=== PATIENT | female | born 1990 | race Caucasian/White ===

== ENCOUNTER → 2023-01-03 12:19 | Outpatient (CLI) | payer OTHER, SELFPAY ==
[2023-01-03 13:47] LABS: Add Manual Diff / Slide Review NO; Basophils Absolute Auto 0 /uL (0-100); Basophils Percent Auto 0.3 % (0-2); Eosinophils Absolute Auto 200 /uL (0-450); Eosinophils Percent Auto 2.2 % (2-4); Hematocrit 39.7 % (36-46); Hemoglobin 13.5 g/dL (12.0-16.0); Lymphocytes Absolute Auto 2700 /uL (1100-4500); Lymphocytes Percent Auto 30.7 % (25-40); Mean Corpuscular HGB Conc 34.1 % (30-36); Mean Corpuscular Hemoglobin 29.5 PG (26-34); Mean Corpuscular Volume 86.6 fL (80-100); Monocytes Absolute Auto 400 /uL (0-900); Monocytes Percent Auto 4.8 % (3-14); Neutrophils Absolute Auto 5500 /uL (1500-7000); Platelet Count 340 X10^3/uL (150-400); Red Blood Cell Count 4.58 X10^6/uL (4.0-5.2); Red Cell Distribution Width 14.2 % (11.6-14.8); White Blood Cell Count 8.9 X10^3/uL (4.5-11.0)
[2023-01-03 13:59] LABS: Hemoglobin A1C% w Est Avg Glu 5.7 % (4.0-6.0)
[2023-01-03 14:03] LABS: Alanine Aminotransferase 19 IU/L (<35); Albumin 4.3 g/dL (3.5-5.0); Albumin Globulin Ratio 1.3 (1.0-2.8); Alkaline Phosphatase 63 U/L (38-126); Aspartate Aminotransferase 24 IU/L (14-36); BUN Creatinine Ratio 16.7 (6-22); Bilirubin Total 0.6 mg/dL (0.2-1.3); Blood Urea Nitrogen 12 mg/dL (7-17); Calcium 9.4 mg/dL (8.4-10.2); Carbon Dioxide 26 mmol/L (22-32); Chloride 104 mmol/L (98-107); Cholesterol 181 mg/dL (140-199); Estimated Glomerular Filt Rate > 60 mL/min (>60); Globulin 3.4 g/dL (1.7-4.1); Glucose 99 mg/dL (70-100); HDL Cholesterol 36 mg/dL (40-60); HEMOLYSIS < 15 (0-50); LDL Cholesterol Calculated 128 mg/dL (<100); Potassium 3.7 mmol/L (3.4-5.1); Sodium 139 mmol/L (137-145); Total Protein 7.7 g/dL (6.3-8.2); Triglycerides 87 mg/dL (35-150)
[2023-01-03 14:35] LABS: Thyroid Stimulating Hormone 0.256 uIU/mL (0.47-4.68)
[2023-01-03 17:25] LABS: HIV 1 & 2 Ab/Ag 4th Gen Combo NEGATIVE (NEGATIVE); Hep C Virus Ab w/Reflex Quant NEGATIVE s/c (NEGATIVE)
== END ==
PROVIDERS: PCP Family Medicine; Referring Provider Family Medicine; Visit Provider Family Medicine
DX: E28.2 Polycystic ovarian syndrome (principal); N92.1 Excessive and frequent menstruation with irregular cycle; M79.7 Fibromyalgia; F31.9 Bipolar disorder, unspecified
CPT/HCPCS: 36415; 80053; 80061; 83036; 84443; 85025; 86803; 87389

== ENCOUNTER → 2023-03-06 10:43 | Outpatient (CLI) | payer OTHER, MEDICAID, SELFPAY ==
[2023-03-06 11:42] LABS: Free T3, Triiodothyronine Free 3.72 pg/mL (2.77-5.27); Free T4, Direct Thyroxine 0.88 ng/dL (0.78-2.19)
[2023-03-06 11:55] LABS: Thyroid Stimulating Hormone 0.377 uIU/mL (0.47-4.68)
== END ==
PROVIDERS: PCP Family Medicine; Referring Provider Family Medicine; Visit Provider Family Medicine
DX: R79.89 Other specified abnormal findings of blood chemistry (principal)
CPT/HCPCS: 36415; 84439; 84443; 84481

== ENCOUNTER → 2023-03-28 11:07 | Outpatient (CLI) | payer OTHER, MEDICAID, SELFPAY ==
[2023-03-28 18:20] LABS: Vitamin D 25 Hydroxy (D3) 24.5 ng/mL (30.0-100.0)
== END ==
PROVIDERS: PCP Family Medicine; Referring Provider Family Medicine; Visit Provider Family Medicine
DX: R53.82 Chronic fatigue, unspecified (principal)
CPT/HCPCS: 36415; 82306

== ENCOUNTER 2024-03-11 08:03 | Emergency (ER) | payer OTHER, SELFPAY ==
[2024-03-11 08:07] VITALS: BP 140/80; PULSE 89; RESP 18; TEMP 36.5; O2SAT 98; BMI 36.0
[2024-03-11 08:08] VITALS: PULSE 96; O2SAT 98
[2024-03-11 08:09] VITALS: BP 140/81; PULSE 87; O2SAT 97
--- NOTE | 2024-03-11 08:19 | ED_ITS ---
HPI - General Adult General Chief complaint: Extremity Injury, Upper Stated complaint: per pt r shoulder dislocated Time Seen by Provider: 03/11/24 08:07 Source: patient Mode of arrival: Ambulatory History of Present Illness HPI narrative: 33-year-old woman with a history of right shoulder pain, bipolar disorder, fibromyalgia, scoliosis and has a history of multiple shoulder dislocations prior to the age of 19. Was folding laundry yesterday and developed worsening pain in the right shoulder. She had noticed some minor pain and swelling from general activities and physical labor in the few days prior to that. Now was complaining that she can not move her arm. She is worried that she has dislocated the arm. Related Data Home Medications Medication Instructions Recorded Confirmed clonidine HCl 0.1 mg tablet 0.1 mg PO BID 12/19/22 03/13/23 duloxetine 60 mg capsule,delayed 60 mg PO DAILY 12/19/22 03/13/23 release Previous Rx's Medication Instructions Recorded polyethylene glycol 3350 17 17 g PO DAILY #510 grams 03/13/23 gram/dose oral powder (GentleLax) Allergies Allergy/AdvReac Type Severity Reaction Status Date / Time No Known Drug Allergies Allergy Unverified 03/13/23 09:02 Review of Systems Review of Systems Narrative: Pertinent positive and negative findings as per HPI Patient History Medical History Osteoarthritis Anxiety Restless leg syndrome Migraines DDD (degenerative disc disease) Scoliosis Chronic back pain Ruptured tympanic membrane Recurrent sinusitis History of recurrent ear infection Fibroids Polycystic ovary syndrome Borderline personality disorder Bipolar disorder Menometrorrhagia Fibromyalgia syndrome Surgical History Anesthesia History of removal of cyst History of repair of rotator cuff History of section Family History Father History of heart disease Hypertension Mother Mental health problem Grandmother Cancer Grandfather Diabetes mellitus History of heart disease Hyperlipidemia Hypertension Grandmother Cancer History of heart disease Social History marital status: number of children: 2 household members: spouse and children lives independently: Yes caregiver/support person: No housing: house pets and animals: Yes (2 cats, 1 dog) education level: college 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) Smoking Status: Never smoker alcohol intake: current (rare) substance use type: marijuana (daily) Smoking Status: Never smoker Exam Initial Vital Signs Initial Vital Signs: Vital Signs Temperature 97.7 F 03/11/24 08:07 Pulse Rate 89 03/11/24 08:07 Respiratory Rate 18 03/11/24 08:07 Blood Pressure 140/80 03/11/24 08:07 Pulse Oximetry 98 03/11/24 08:07 Oxygen Delivery Method Room Air 03/11/24 08:07 General: Alert appropriate in no acute distress Respiratory: Able to speak in full sentences, no obvious respiratory distress Skin: No obvious rashes, warm and dry Neurologic: Grossly intact no obvious asymmetries or abnormalities Psych: appropriate insight and affect, cooperative Extremity: Right shoulder is examined. No gross deformity is appreciated. She is neurovascularly intact distally. There is some swelling over the deltoid and around the proximal humerus. There was no warmth or redness to suggest infection. She is full extension of the elbow and no pain at the wrist. Main tenderness is around the deltoid insertion posteriorly and she has tenderness with biceps contraction. There was enough tenderness and overall edema that complete soft tissue/ligamentous exam is difficult today Course Orders Ordered: ED Orders 03/11/24 08:29 XR shoulder RT min 2V Stat Discontinued Medications Acetaminophen (Acetaminophen 325 Mg Tablet) 325 mg PO NOW ONE Stop: 03/11/24 08:30 Last Admin: 03/11/24 08:43 Dose: 325 mg Documented By: SUDHIR Ibuprofen (Ibuprofen 400 Mg Tablet) 400 mg PO NOW ONE Stop: 03/11/24 08:30 Last Admin: 03/11/24 08:43 Dose: 400 mg Documented By: MPO Vital Signs Vital signs: Vital Signs - 8 hr 03/11/24 08:07 Temperature 97.7 F Pulse Rate 89 Respiratory Rate 18 Blood Pressure 140/80 Pulse Oximetry 98 Oxygen Delivery Method Room Air Medical Decision Making [facility] Narrative Medical decision making narrative: 33-year-old woman with a history of chronic right shoulder pain. Increasing pain over the last couple of days and then significant pain while folding laundry yesterday. X-ray does not show any evidence of dislocation or AC joint separation. On physical exam she is exquisitely tender over the bicipital insertion and deltoid insertion. There was no suggestion infection, septic joint, hemorrhage She is given ibuprofen and Tylenol. She is placed in a sling for comfort. She is neurovascularly intact pre and post placement and does feel slightly more comfortable with a mild immobilization. Ice pack is given At the suspect she does have moderate soft tissue injury and may benefit from physical therapy and eventually MRI of the shoulder. She will need follow up with her primary care physician all of this is reviewed with the patient, there was no indication for additional imaging or hospitalization she is safe for discharge Discharge Plan Departure Patient Disposition: Home Clinical Impression: Injury of shoulder, right Qualifiers: Encounter type: initial encounter Qualified Code(s): S49.91XA - Unspecified injury of right shoulder and upper arm, initial encounter Instructions: DI for Rotator Cuff Injury, DI for Shoulder Labral Tear Activity Restrictions/Additional Instructions: Thank you for coming in today I am sorry that shoulder is hurting so much. The x-rays do not show any bony abnormalities. You do not have a current dislocation. With the pain in the swelling I am concerned that you have injured some of the soft tissue. Whether this is a labral tear, a rotator cuff injury or perhaps even a bicipital tear is uncertain at this time. Using 400 mg of ibuprofen (2 [id number] pills) and 1 Tylenol every 6 hours can be very helpful in controlling pain. Ice can also be helpful. I have given you a sling for comfort. You do need to follow up with your primary care physician. You may benefit from physical therapy and some point may need an MRI for definitive diagnosis. If you find that you are getting worse or develop any new symptoms, please feel free to return to the emergency department for further evaluation. Prescriptions: No Action polyethylene glycol 3350 [GentleLax] 17 gram/dose powder 17 g PO DAILY Qty: 510 0RF duloxetine 60 mg capsule,delayed release(DR/EC) 60 mg PO DAILY clonidine HCl 0.1 mg tablet 0.1 mg PO BID Referrals: Jalen Martinez MD [Primary Care Provider] - Stand Alone Forms: Patient Portal/API/Survey
--- NOTE | 2024-03-11 08:29 | DI.RAD.S_ITS ---
PROCEDURE: XR SHOULDER RT MIN 2V INDICATIONS: shoulder pain, pt concerned with dislocation TECHNIQUE: 3 views of the shoulder were acquired. COMPARISON: None. FINDINGS: Bones: No fractures or dislocations. Glenohumeral joint degenerative change. No suspicious bony lesions. Visualized ribs appear intact. Soft tissues: No suspicious soft tissue calcifications. IMPRESSION: No acute bony abnormality. Glenohumeral joint degenerative change. Dictated by: James Davis M.D. on 03/11/2024 at 8:44 Approved by: James Davis M.D. on 03/11/2024 at 8:49
[2024-03-11 08:30] VITALS: PULSE 72; O2SAT 98
[2024-03-11] MEDS: IBUPROFEN 400 MG TABLET PO (08:43)
[2024-03-11] MEDS: ACETAMINOPHEN 325 MG TABLET PO (08:43)
[2024-03-11 09:00] VITALS: PULSE 73; RESP 18; O2SAT 98
[2024-03-11 09:23] VITALS: BP 142/75; PULSE 83; RESP 18; TEMP 36.7; O2SAT 98
== END 2024-03-11 09:23 | disposition home or self-care (01) ==
PROVIDERS: Emergency Provider Emergency Medicine; PCP Family Medicine
DX: S49.91XA Unspecified injury of right shoulder and upper arm, initial encounter (principal); X58.XXXA Exposure to other specified factors, initial encounter
CPT/HCPCS: 73030; 99283

== ENCOUNTER → 2024-06-24 09:34 | Outpatient (CLI) | payer OTHER, SELFPAY ==
--- NOTE | 2024-06-24 09:36 | DI.RAD.S_ITS ---
PROCEDURE: XR SHOULDER LT MIN 2V INDICATIONS: L shoulder impingement, sensation of being out of joint TECHNIQUE: 3 views of the shoulder were acquired. COMPARISON: [facility], CR, XR SHOULDER RT MIN 2V, 03/11/2024, 8:25. FINDINGS: Bones: No fractures or dislocations. No suspicious bony lesions. Visualized ribs appear intact. Soft tissues: No suspicious soft tissue calcifications. IMPRESSION: No acute fracture or dislocation of the left shoulder. Dictated by: Miguel Venegas M.D. on 06/24/2024 at 16:49 Approved by: Miguel Venegas M.D. on 06/24/2024 at 16:49
--- NOTE | 2024-06-24 09:36 | DI.RAD.S_ITS ---
PROCEDURE: XR HIP W PEL IF DONE LT 2V INDICATIONS: Chronic L hip pain, sensation of being out of joint TECHNIQUE: AP pelvis with lateral view(s) of the left hip(s). COMPARISON: None. FINDINGS: Bones: No fractures or dislocations. Pelvic ring appears intact. No suspicious bony lesions. Soft tissues: The visualized bowel gas pattern is normal. No suspicious soft tissue calcifications. IMPRESSION: No acute fracture or dislocation of the pelvis or left hip. Dictated by: Miguel Venegas M.D. on 06/24/2024 at 16:48 Approved by: Miguel Venegas M.D. on 06/24/2024 at 16:49
[2024-06-24 10:48] LABS: Hematocrit 38.9 % (36-46); Hemoglobin 13.2 g/dL (12.0-16.0); Mean Corpuscular HGB Conc 33.9 % (30-36); Mean Corpuscular Hemoglobin 29.8 PG (26-34); Platelet Count 333 X10^3/uL (150-400); Red Blood Cell Count 4.42 X10^6/uL (4.0-5.2); Red Cell Distribution Width 13.4 % (11.6-14.8); White Blood Cell Count 7.1 X10^3/uL (4.5-11.0)
[2024-06-24 11:15] LABS: Alanine Aminotransferase 35 IU/L (<35); Albumin 4.2 g/dL (3.5-5.0); Albumin Globulin Ratio 1.6 (1.0-2.8); Alkaline Phosphatase 70 U/L (38-126); Aspartate Aminotransferase 29 IU/L (14-36); BUN Creatinine Ratio 21.1 (6-22); Bilirubin Total 0.4 mg/dL (0.2-1.3); Blood Urea Nitrogen 16 mg/dL (7-17); C-Reactive Protein Quant 1.2 mg/dL (<1.0); Calcium 9.2 mg/dL (8.4-10.2); Carbon Dioxide 24 mmol/L (22-32); Chloride 105 mmol/L (98-107); Cholesterol 222 mg/dL (140-199); Estimated Glomerular Filt Rate > 60 mL/min (>60); Globulin 2.6 g/dL (1.7-4.1); Glucose 82 mg/dL (70-99); HDL Cholesterol 47 mg/dL (40-60); HEMOLYSIS < 15 (0-50); LDL Cholesterol Calculated 149 mg/dL (<100); Potassium 4.3 mmol/L (3.4-5.1); Sodium 138 mmol/L (137-145); Total Protein 6.8 g/dL (6.3-8.2); Triglycerides 131 mg/dL (35-150)
[2024-06-24 11:16] LABS: Rheumatoid Factor < 8.6 IU/mL (<12.0)
[2024-06-24 11:18] LABS: Erythrocyte Sedimentation Rate 5 MM/HR (0-20)
[2024-06-24 11:21] LABS: Vitamin D 25 Hydroxy (D3) 25.6 ng/mL (30.0-100.0)
[2024-06-24 11:22] LABS: Free T4, Direct Thyroxine 0.72 ng/dL (0.78-2.19)
[2024-06-24 11:35] LABS: Thyroid Stimulating Hormone 0.617 uIU/mL (0.47-4.68)
[2024-06-26 11:41] LABS: CCP Antibodies IgG/IgA 7 units (0-19)
[2024-07-01 09:41] LABS: ANA Screen, IFA Negative (.)
== END ==
PROVIDERS: PCP Family Medicine; Referring Provider Family Medicine; Visit Provider Family Medicine
DX: M25.512 Pain in left shoulder (principal); M79.7 Fibromyalgia; M25.552 Pain in left hip; Z13.220 Encounter for screening for lipoid disorders; M25.50 Pain in unspecified joint; R53.82 Chronic fatigue, unspecified; R79.89 Other specified abnormal findings of blood chemistry; G89.29 Other chronic pain
CPT/HCPCS: 36415; 73030; 73502; 80053; 80061; 82306; 84439; 84443; 85027; 85651; 86038; 86140; 86200; 86430

== ENCOUNTER → 2025-01-06 10:20 | Outpatient (CLI) | payer OTHER, SELFPAY | PROVIDERS: PCP Family Medicine; Visit Provider Nurse Practitioner Family | DX: J02.9 Acute pharyngitis, unspecified (principal) | CPT/HCPCS: 87070 ==

== ENCOUNTER → 2025-01-06 10:43 | Outpatient (CLI) | payer OTHER, SELFPAY ==
--- NOTE | 2025-01-06 10:45 | DI.RAD.S_ITS ---
PROCEDURE: XR CHEST 2V
== END ==
PROVIDERS: PCP Family Medicine; Referring Provider Family Medicine; Visit Provider Nurse Practitioner Family
DX: J02.9 Acute pharyngitis, unspecified (principal); R05.9 Cough, unspecified
CPT/HCPCS: 71046; 87070